=== PATIENT | female | born 1955 | race Caucasian/White ===

== ENCOUNTER → 2018-04-16 | Day surgery (SDC) | payer OTHER ==
[~2018-04-16] VITALS: Ht 157.5 cm; Wt 58.1 kg
[~2018-04-16] MED LIST: FLOMAX(MONOGRA0.4 MG PO; PERCOCET 325 MG1 TA2 PO; POTASSIUM CHLO10 MEQ PO; ZOFRAN ODT4 MG PO
--- NOTE | 2018-04-16 15:22 | Operative Report ---
Operative/Inv Procedure Report Surgery Date: 04/16/18 Name of Procedure: Left small finger DIP joint fusion. 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 Post-Operative Diagnosis: Same. Estimated Blood Loss: scant (scant.) Surgeon/Dials Inspector: Hayden WATSON,Abdi/Ruth TSE Anesthesia: laryngeal mask airway Monitors: EKG/blood pressure/oxygen saturation IV Fluids: Lactated Ringer's Implants: Arthrex 2.5 mm diameter by 22 mm length FT headless compression screw 1. Urine Output: None. Drains: None. Specimens: None. Microbiology: None. Tourniquet: 41 minutes@250 mmHg. Complications: None known. Condition: Stable. Operative Indication: The patient is a 62-year-old female with at least a six-month history of bilateral small finger DIP joint pain. Prior to this she had noticed DIP joint deformity of the small fingers. On the left side she was developing dorsal prominence which visually was consistent with a mucous cyst arising from the DIP joint. X-rays did confirm DIP joint osteoarthritis on both sides. Initial management was conservative but symptoms continued. With ongoing symptoms we discussed continued nonoperative management with injection therapy to the DIP joint. We did discuss additional attempts at splinting and medications orally and topically as well as modalities. We did also discuss surgical intervention with DIP joint arthrodesis. The patient very strongly wish to move forward with DIP joint arthrodesis for likely more definitive treatment. She wanted to start with her more symptomatic left sided small finger DIP joint in anticipation of eventually move on to the contralateral right side small finger DIP joint if symptoms progress and assuming that she gets adequate symptom relief from DIP joint fusion on the left. The patient is a lifelong smoker. Over time in her meeting with me discussing options and with the understanding that she might be looking at surgery eventually she was encouraged to quit smoking. She made steady progress over time but was unable to wean herself any further than about 1-2 cigarettes total over a 2-3 day period. We did discuss the increased risk factors related to tobacco use with respect to achieving successful fusion and with respect to wound healing issues, etc. The patient does understand that she is at increased risk but she is essentially at a plateau in her ability to discontinue tobacco. With this knowledge in mind the patient did wish to move forward with surgical intervention as she was quite symptomatic. All of her questions were again reviewed at length and discussed at length. After discussion of the same and answering all questions surgical consent was obtained. Operative/Procedure Note Note: The patient was brought to the operating room and placed on the operating table in the supine position. General anesthesia via LMA was induced by the anesthesiologist. A dose of IV antibiotics were given for infection prophylaxis. All bony prominences were well-padded. A well-padded tourniquet was applied to the proximal portion of the left arm. Both legs were placed into Compression sleeves to hopefully cutdown on risk of lower extremity venous pooling and blood clot formation and propagation. All bony prominences were also well padded. The left upper extremity was then prepped and draped in the usual sterile fashion. The patient's left small finger DIP joint was marked out for a dorsal approach to the joint. This included a marking for a transverse limb surgical incision running direct dorsally across the top of the DIP joint. This was extended to the mid radial and mid ulnar borders of the DIP joint respectively. Markings for a longitudinal incisions extending proximal and distal to the anticipated wound at the mid axial radial and mid axial ulnar borders of the DIP joint were marked out so as to overall create an H-shaped incision. Once the skin was marked the extremity was exsanguinated and then the pneumatic tourniquet was inflated to a pressure of 250 mmHg. The skin incision was created. Full- thickness skin with subcutaneous tissue flaps extending down through the extensor tendon dorsally were created. The flaps were then elevated proximally and distally in order to expose the dorsal aspect of the DIP joint. In cutting across the dorsal skin and subcutaneous Tissues we did cut across the mucous cyst which drained after being divided. We now had good visualization of the dorsal DIP joint. There was significant osteophyte formation dorsally on both sides of the joint. These were debrided with a rongeur. We next used a microsagittal saw to debride the distal end of the middle phalanx by cutting across the condyles of the head of the middle phalanx. We did the same with respect to cutting across the base of the distal phalanx. Both cuts were made as perpendicular as possible to the long axis of the phalanges. We did use a rongeur and a rasp to smooth the borders circumferentially on the cut surfaces to debulk them slightly as they did have some degenerative expansion consistent with osteoarthritis. We next used a double-ended K wire which was drilled in a proximal to distal direction through the cut surface of the base of the distal phalanx and brought out distally under the nail plate through the tip of the small finger. The distal phalanx was then aligned with the cut surface of the middle phalanx. The K wire was then advanced back in retrograde fashion across the DIP joint/fusion interface and into the middle phalanx and advanced proximally just about up to the level of the subchondral bone of the middle phalanx. We did have to reposition this wire several times until we were satisfied that the wire was running longitudinally as close to the midline axis down both phalanges as possible. We next made a small skin incision at the tip of the small finger which allowed us after spreading the soft tissues to bring the depth gauge measurement down to the tip of the bone at the distal phalangeal tuft. In this case we measured about 26-28 mm in length. Based upon that we elected to ultimately place a 22 mm length screw. With that in mind we used the entry drill to open the bone at the tip of the distal femoral drill tuft penetrating into the bone for about 5 mm. This was done over the guidewire under fluoroscopic control. We next used the regular cannulated drill for the Arthrex FT2.5 millimeter diameter headless compression screw running that in retrograde fashion under fluoroscopic control and over the guidewire across the fusion interface and into the base of the middle phalanx. We removed the cannulated drill while keeping the guidewire in place. We next manually checked the rotation and alignment of the fusion surface and maintained this in good position while advancing a 22 mm headless compression screw again over the guidewire under fluoroscopic control. As we tightened down the screw we did appreciate significant compression consistent with the design of the screw. Of note given the patient's small bone dimensions I do believe that we likely cracked the dorsal cortical bone at the base of the distal phalanx. This did allow the proximal end of the distal phalanx to sublux in a slightly volar position but the overall alignment between the 2 bones was felt to still be acceptable. The fusion interface was felt to be acceptable with respect to alignment and compression. The hardware overall was felt to be acceptable in good position with good fixation. Of note we did very the distal end of the headless screw into the distal phalanx just below the distal phalangeal tuft. Final AP and lateral fluoroscopic images were taken and saved for hard copy. We now turned our attention towards closure. The wound was copiously irrigated multiple times as were the bone. The tourniquet was deflated. Hemostasis was achieved with accommodation minor pressure and electrocautery. The soft tissue flaps were allowed to fall down into approximation in normal position. The soft tissue repair consisted of direct approximation of full-thickness skin with subcutaneous tissue flaps using 3-0 Prolene placed in interrupted simple fashion. We did also place a simple interrupted Prolene suture at the small stab wound placed at the tip of the small finger for the guidewire and drill. Once this was completed the wound was washed and dried again. Xeroform nonadherent dressing was applied over the suture line followed by sterile gauze dressings applied along the finger. We next wrapped the gauze dressings with a gauze wrap and placed an AlumaFoam finger splint running from the base of the middle phalanx distal to the PIP joint proximally and extending distally to the tip of the small finger. This was overwrapped with Coban self adherent bandaging to hold the splint and the dressings in place on the patient's small finger. The left upper extremity was placed into a Sarabjit pillow for elevation. The patient was awakened from general anesthesia and transferred to the stretcher and brought to the recovery room in stable condition having tolerated the procedure well. Findings: 1) Acceptable fusion margins and approximation achieved. 2) Acceptable hardware position and fixation achieved. Discharge Disposition: PACU
== END ==
LOC: STS 01:56
DX: M19.042 Primary osteoarthritis, left hand (principal); M79.645 Pain in left finger(s); F17.200 Nicotine dependence, unspecified, uncomplicated; L40.9 Psoriasis, unspecified; R03.0 Elevated blood-pressure reading, without diagnosis of hypertension; E87.6 Hypokalemia; R51 Headache; M50.90 Cervical disc disorder, unspecified, unspecified cervical region; Z85.828 Personal history of other malignant neoplasm of skin
CPT/HCPCS: C1713; J0690; J3490

== ENCOUNTER 2018-05-27 02:41 | Inpatient (IN) | payer OTHER ==
[~2018-05-27] VITALS: Ht 157.5 cm; Wt 54.4 kg
[~2018-05-27 02:41] MED LIST changes: +AMLODIPINE BESYL5 M1 PO; +BUTALB-ACETAMI1 EACH PO; +BYSTOLIC5 M1 PO; +CALCIPOTRIENE60 G1; +ECONAZOLE NITRA15 GM TOP; +ELOCON15 GM TOP; +FLUOCINONIDE15 G2 TOP; +HYDROCODON-ACE1 EAC2 PO; +LIVALO2 M1 PO; +PERCOCET 5-3251 EACH PO; +SPIRONOLACTONE50 M1 PO; +TRIAMCINOLONE A15 G3 TOP
--- NOTE | 2018-05-27 09:08 | Admission Core Measures ---
Acute Coronary Syndrome (CM) ACS Core Measures Acute Coronary Syndrome Diagnosis No Congestive Heart Failure (NEW) CHF Core Measures Congestive Heart Failure Diagnosis No Cerebrovascular Accident CVA Core Measures CVA/TIA Diagnosis No Venous Thromboembolism VTE Core Luz (View Protocol) VTE Risk Factors Surgery No Mechanical VTE Prophylaxis d/t N/A MechProphylax Ordered No VTE Pharm Prophylaxis d/t NA PharmProphylax ordered Problem List As ranked by this Provider includes Assessment & Plan 1. Carotid stenosis, right HOME MEDS Home Med List Amlodipine Besylate 5 MG TABLET 1 TAB PO DAILY HTN (Reported) Butalb/Acetaminophen/Caffeine (Pniqka-Eaywitqz-Kger 50-325-40) 50 MG-325 MG-40 MG TABLET 1 TAB PO BID PAIN (Reported) Econazole (Econazole Nitrate) 1 % CREAM..G. 1 BEE TOP BID SKIN (Reported) Fluocinonide 0.05 % CREAM..G. 1 BEE TOP BID SKIN (Reported) Hydrocodone/Acetaminophen (Hydrocodon-Acetaminophen 5-325) 5 MG-325 MG TABLET 1-2 TAB PO Q4-6 PRN PRN PAIN (Reported) Mometasone Furoate (Elocon) 0.1 % CREAM..G. 1 BEE TOP BID SKIN (Reported) Nebivolol HCl (Bystolic) 5 MG TABLET 1 TAB PO DAILY HTN (Reported) Oxycodone HCl/Acetaminophen (Percocet 5-325 MG Tablet) 5 MG-325 MG TABLET 1-2 TAB PO Q4-6 PRN PAIN (Reported) Spironolactone 50 MG TABLET 1 TAB PO DAILY HTN (Reported) Triamcinolone Acetonide 0.1 % OINT...G. 1 BEE TOP BID SKIN (Reported)
[2018-05-27 10:30] VITALS: BP 152/0
--- NOTE | 2018-05-27 12:15 | PN- Vascular Surgery ---
Subjective Subjective: Post op check Awake, alert Complaining of surgical pain and a sore throat Tolerating water and ice chips - liquid tray has just arrived to bedside Denies nausea Objective Vital Signs and I&Os Vital Signs Date Time Temp Pulse Resp B/P B/P Pulse O2 O2 Flow FiO2 Mean Ox Delivery Rate 05/27 1039 96 Nasal 2.0L Cannula 05/27 1030 97.0 73 18 152/0 93 Nasal 2.0L Cannula Intake & Output 05/27 1600 05/27 0800 05/27 0000 05/26 0805/26 0000 Intake Total Output Total Balance Patient 120 lb Weight Weight Reported by Patient Measurement Method Physical Exam: afebrile, vss HR is dipping into the mid 40's - regular rhythm, bp remaining stable at 130's systolic and no symptoms, current HR - 63 sinus General: alert and oriented times three Chest: clear anteriorly bilaterally, RRR Abd: soft, good bs Ext: normosensate, good 5/5 MARCO BUE, no edema Wd: dressed, dry, ice pack in place Assessment/Plan Assessment/Plan 62yo female s/p R CEA pain management - percocet ordered will give a dose of morphine if needed clear liquids - advance to as tolerated restart home meds arterial line monitoring overnight dc planning Core Measures Venous Thromboembolism VTE Risk Factors Surgery No Mechanical VTE Prophylaxis d/t N/A MechProphylax Ordered No VTE Pharm Prophylaxis d/t NA PharmProphylax ordered
--- NOTE | 2018-05-27 12:20 | Patient Discharge Instructions ---
Discharge Instructions General Discharge Information You were seen/treated for: carotid artery stenosis You had these procedures: right carotid endarterectomy Watch for these problems: temp>101, increased redness or drainage of wounds, increased numbness or weakness, slurring of speech Do not soak the wound: Yes Other wound care: Keep incision clean and dry, may shower but no bathing or soaking until the wound is completely healed in about 6-8 weeks Diet Continue normal diet: Yes Activity Activity Self Limited: Yes Acute Coronary Syndrome Inclusion Criteria At DC or during hospital stay patient has or had the following: ACS DIAGNOSIS No Discharge Core Measures Meds if any: Prescribed or Continued at Discharge Meds if any: NOT Prescribed or Continued at Discharge Congestive Heart Failure Inclusion Criteria At DC or during hospital stay patient has or had the following: CHF DIAGNOSIS No Discharge Core Measures Meds if any: Prescribed or Continued at Discharge Meds if any: NOT Prescribed or Continued at Discharge Cerebrovascular accident Inclusion Criteria At DC or during hospital stay patient has or had the following: CVA/TIA Diagnosis No Discharge Core Measures Meds if any: Prescribed or Continued at Discharge Meds if any: NOT Prescribed or Continued at Discharge Venous thromboembolism Inclusion Criteria VTE Diagnosis No VTE Type NONE VTE Confirmed by (Test) NONE Discharge Core Measures - Per Current guidelines, there needs to be overlap - treatment for the first 5 days of Warfarin therapy. - If discharged on Warfarin prior to 5 days of - overlap therapy, the patient will need to be - assessed for post discharge needs including - *Post discharge parental anticoagulation - *Warfarin and/or parental anticoagulation education - *Follow up date to check INR post discharge At least 5 days overlap therapy as Inpatient No Meds if any: Prescribed or Continued at Discharge Note: Overlap Therapy is Warfarin and Anticoagulant Meds if any: NOT Prescribed or Continued at Discharge
--- NOTE | 2018-05-27 12:24 | Surg Short-stay <48hrs Dis Sum ---
Visit Information Visit Dates Admission Date: 05/27/18 Discharge Date: 05/28/18 Surgical Short Stay DC Summary Admission Diagnosis: Carotid stenosis Final Diagnosis: same, s/p R CEA Procedure(s): R CEA - see operative report Summary/Significant Findings: Pt underwent R CEA by Dr Mccarthy and was brought to the PACU in stable condition. She was transferred to the ICU for overnight monitoring with an arterial line. Her vital signs remained stable, her pain was well controlled, she was able to tolerate a diet and she was cleared for discharge home. Condition at Discharge: good Discharge Disposition: home or self care Discharge instructions provided to patient/family: Yes Post discharge follow-up plan: Call Dr Mccarthy office for a fu appt within two weeks of discharge Copies to: Amado LINK,Carmen Cooepr
[2018-05-27 16:00] VITALS: BP 110/60
[2018-05-27 18:25] VITALS: BP 125/51
[2018-05-27 20:00] VITALS: BP 118/76
[2018-05-27 22:00] VITALS: BP 106/60
--- NOTE | 2018-05-28 05:40 | PN- Vascular Surgery ---
Subjective Subjective: no issues overnight. feeling ok, pain at incision. had small amt po last night. no cp/spb/n/v/changes in voice. no oob yet Objective Vital Signs and I&Os Vital Signs Date Time Temp Pulse Resp B/P B/P Pulse O2 O2 Flow FiO2 Mean Ox Delivery Rate 05/28 0400 96 Nasal 2.0L Cannula 05/28 0000 94 Nasal 2.0L Cannula 05/27 2200 54 17 106/60 95 Nasal 2.0L Cannula 05/27 2000 Nasal 2.0L Cannula 05/27 2000 97.8 64 18 118/76 95 Nasal 2.0L Cannula 05/27 1825 69 16 125/51 95 Nasal 2.0L Cannula 05/27 1600 Nasal 2.0L Cannula 05/27 1600 96.9 62 18 110/60 95 Nasal 2.0L Cannula 05/27 1200 96 Nasal 2.0L Cannula 05/27 1039 96 Nasal 2.0L Cannula 05/27 1030 97.0 73 18 152/0 93 Nasal 2.0L Cannula Intake & Output 05/28 0800 05/28 0000 05/27 1600 05/27 0800 05/27 0000 05/26 1600 Intake Total 1324 630 Output Total 500 Balance 824 630 Intake, IV 604 380 Intake, Oral 720 250 Output, Urine 500 Patient 120 lb Weight Weight Reported by Patient Measurement Method Physical Exam: gen- nad neuro-no focal deficits card-s1s2 bp well controlled overnight pulm- ctab incision- soft ecchymosis inferior aspect, ttp. dressing cdi. some mild edema. ext- calves soft nt Assessment/Plan Assessment/Plan A- POD1 sp R CEA, stable P- hl dc cody prn pain meds home meds oob, ambulate diet as tolerated dc planning Core Measures Venous Thromboembolism VTE Risk Factors Surgery No Mechanical VTE Prophylaxis d/t N/A MechProphylax Ordered No VTE Pharm Prophylaxis d/t NA PharmProphylax ordered
[2018-05-28] MEDS ORDERED: PERCOCET 5-3251 EACH PO (06:12)
[2018-05-28 08:00] VITALS: BP 140/62
[2018-05-28 08:21] VITALS: BP 160/70
--- NOTE | 2018-06-04 15:21 | Operative Report ---
Operative/Inv Procedure Report Surgery Date: 05/27/18 Name of Procedure: right carotid endarterectomy Pre-Operative Diagnosis: right carotid stenosis Post-Operative Diagnosis: same Estimated Blood Loss: less than 50ml Surgeon/Used Car Renovator: Fabio WATSON,Dania Carrera MD, Sedrick Anesthesia: general endotracheal tube Specimens: right carotid artery plaque Operative/Procedure Note Note: The patient was brought to the operating room placed on the operating table in the supine position and prepped and draped in the usual sterile fashion. Prior to the start of the procedure, timeout was taken to confirm the patient and procedure. A preoperative dose of antibiotics was administered prior to incision. We began by making a longitudinal incision along the medial border of the right sternocleidomastoid muscle. Electrocautery and blunt dissection were used to expose the border of the sternocleidomastoid muscle and jugular vein which were reflected laterally to expose the carotid artery. This was encircled proximally and distally with Silastic Vesseloops. The patient was therapeutically anticoagulated with heparin. We occluded the artery and made a longitudinal arteriotomy. There was vigorous backbleeding noted from the internal carotid artery. We then performed a full intimal medial endarterectomy with feathering of the distal plaque in the internal carotid artery. The artery was irrigated copiously with heparinized saline. We then utilized a running 6-0 Prolene suture to close the arteriotomy with a primary repair. Some topical Gelfoam and thrombin were used for hemostasis. Flow was reinstituted first to the external carotid artery and then finally to the internal carotid artery. There was good diastolic flow through the internal carotid artery by Doppler. We then irrigated the wound and closed with a running 3-0 Vicryl stitch for the platysmal layer and skin shirin were applied. Both surgeons were present and scrubbed throughout the procedure.
== END 2018-05-28 11:50 | DRG 39 ==
LOC: SDA 02:41 → ENRESERV 09:14 → ENTRNSPT 10:02 → EDTRNSPT 10:06 → EDTRNSPTSTS 10:06 → CRI 10:23 → CMPTRNSPT 10:33 → CRI 05-28 11:50
PROC: 03CK0ZZ Extirpation of Matter from Right Internal Carotid Artery, Open Approach (ICD-10-PCS; principal; 2018-05-27)
DX: I65.21 Occlusion and stenosis of right carotid artery (principal); I10 Essential (primary) hypertension; Z85.828 Personal history of other malignant neoplasm of skin; Z90.49 Acquired absence of other specified parts of digestive tract; F17.210 Nicotine dependence, cigarettes, uncomplicated
CPT/HCPCS: CCU; 88304; J0131; J1644; J2001; J2405; J3490; J7042